=== PATIENT | male | born 1940 | race Caucasian/White ===

== ENCOUNTER → 2018-01-18 | Outpatient (CLI) | payer OTHER | END | disposition home or self-care (01) | LOC: RAD 10:18 | DX: M25.561 Pain in right knee (principal) ==

== ENCOUNTER 2018-11-12 09:07 | Emergency (ER) | payer OTHER ==
[~2018-11-12] VITALS: Ht 180.3 cm; Wt 71.2 kg
[2018-11-12] MEDS ORDERED: XARELTO20 MG (09:23)
[2018-11-12] MEDS ORDERED: NAMENDA10 MG (09:23)
[2018-11-12] MEDS ORDERED: TOPROL XL100 M1 (09:23)
[2018-11-12] MEDS ORDERED: ARICEPT10 MG (09:24)
== END 2018-11-12 12:43 | disposition home or self-care (01) ==
LOC: ER 09:07
DX: K40.90 Unilateral inguinal hernia, without obstruction or gangrene, not specified as recurrent (principal)

== ENCOUNTER → 2019-01-19 | Emergency (ER) | payer OTHER ==
[~2019-01-19] VITALS: Ht 167.6 cm; Wt 74.4 kg
[~2019-01-19] MED LIST: ARICEPT10 MG; NAMENDA10 MG; TOPROL XL100 M1; XARELTO20 MG
== END | disposition left against medical advice (07) ==
LOC: ER 16:11
DX: Z53.20 Procedure and treatment not carried out because of patient's decision for unspecified reasons (principal)

== ENCOUNTER 2019-07-03 16:07 | Emergency (ER) | payer OTHER ==
[~2019-07-03] VITALS: Ht 170.2 cm; Wt 65.8 kg
== END 2019-07-03 21:52 | disposition home or self-care (01) ==
LOC: ER 16:07 → CPU-OBS 16:08 → ER 21:52
DX: R00.2 Palpitations (principal); R07.89 Other chest pain; Z95.810 Presence of automatic (implantable) cardiac defibrillator